=== PATIENT | female | born 1965 | race African-American/Black ===

== ENCOUNTER 2020-05-30 02:08 | Emergency (ER) | payer MEDICAID, OTHER ==
[~2020-05-30] VITALS: Ht 167.6 cm; Wt 59.0 kg
[2020-05-30 02:38] VITALS: BP 121/81
[2020-05-30] MEDS ORDERED: DEXAMETHASONE 4MG/ML 1ML VIAL IM ONE (03:00)
== END 2020-05-30 03:19 | disposition home or self-care (01) ==
LOC: ER 02:08
DX: L20.9 Atopic dermatitis, unspecified (principal); L30.9 Dermatitis, unspecified; L40.9 Psoriasis, unspecified; F41.9 Anxiety disorder, unspecified; F32.9 Major depressive disorder, single episode, unspecified; F20.9 Schizophrenia, unspecified
CPT/HCPCS: 96372; 99283; J1100